=== PATIENT | female | born 1970 | race Caucasian/White ===

== ENCOUNTER 2019-03-10 01:42 | Emergency (ER) | payer OTHER ==
[~2019-03-10] VITALS: Ht 154.9 cm; Wt 73.0 kg
[2019-03-10] MEDS ORDERED: DIPHENHYDRAMINE 25MG CAPSULE PO ONE (02:45)
[2019-03-10] MEDS ORDERED: TETANUS, DIPHTHERIA, PERTUSSIS VAC/PF 0.5ML (>7YR OLD) IM ONE (03:00)
[2019-03-10 03:36] VITALS: BP 125/86
== END 2019-03-10 03:37 | disposition home or self-care (01) ==
LOC: ER 02:09
DX: S81.852A Open bite, left lower leg, initial encounter (principal); W50.3XXA Accidental bite by another person, initial encounter; Y93.89 Activity, other specified; Y92.89 Other specified places as the place of occurrence of the external cause; Y99.0 Civilian activity done for income or pay; F12.90 Cannabis use, unspecified, uncomplicated; Z23 Encounter for immunization; R03.0 Elevated blood-pressure reading, without diagnosis of hypertension; T14.8XXA Other injury of unspecified body region, initial encounter; W57.XXXA Bitten or stung by nonvenomous insect and other nonvenomous arthropods, initial encounter
CPT/HCPCS: 90471; 90715; 99283; Q0163

== ENCOUNTER 2019-04-25 13:46 | Emergency (ER) | payer OTHER ==
[~2019-04-25] VITALS: Ht 154.9 cm; Wt 75.0 kg
[2019-04-25 15:42] VITALS: BP 111/83
== END 2019-04-25 18:43 | disposition left against medical advice (07) ==
LOC: ER 13:46
DX: M79.605 Pain in left leg (principal); Z53.21 Procedure and treatment not carried out due to patient leaving prior to being seen by health care provider

== ENCOUNTER 2019-04-29 01:40 | Emergency (ER) | payer OTHER ==
[~2019-04-29] VITALS: Ht 154.9 cm; Wt 71.0 kg
[2019-04-29 02:12] VITALS: BP 107/75
== END 2019-04-29 04:21 | disposition home or self-care (01) ==
LOC: ER 01:40
DX: Z48.00 Encounter for change or removal of nonsurgical wound dressing (principal); F12.10 Cannabis abuse, uncomplicated; Z88.0 Allergy status to penicillin; Z98.890 Other specified postprocedural states
CPT/HCPCS: 99283

== ENCOUNTER 2019-05-02 15:21 | Emergency (ER) | payer OTHER ==
[~2019-05-02] VITALS: Ht 154.9 cm; Wt 71.0 kg
[2019-05-02 15:29] VITALS: BP 133/85
== END 2019-05-02 16:08 | disposition home or self-care (01) ==
LOC: ER 15:21
DX: S80.872D Other superficial bite, left lower leg, subsequent encounter (principal); L92.9 Granulomatous disorder of the skin and subcutaneous tissue, unspecified; F12.10 Cannabis abuse, uncomplicated; Z88.0 Allergy status to penicillin; Z98.890 Other specified postprocedural states; W50.3XXD Accidental bite by another person, subsequent encounter
CPT/HCPCS: 99281